=== PATIENT | female | born 1990 | race American Indian/Alaskan Native ===

== ENCOUNTER 2020-04-06 15:35 | Emergency (ER) | payer OTHER ==
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
[2020-04-06 17:32] VITALS: BP 121/80
--- NOTE | 2020-04-06 18:17 | XRay Report ---
Left hand 3 views INDICATION: Left hand pain. IMPRESSION: No fracture or subluxation of the left hand is identified. Moderate swelling overlying th e MCPs dorsally. Signer Name: Al Livingston MD Signed: 04/06/2020 6:12 PM Workstation Name: [id number]
--- NOTE | 2020-04-12 16:01 | XRay Report ---
LEFT SHOULDER 3 VIEW(S) INDICATION / CLINICAL INFORMATION: SHOULDER PAIN COMPARISON: None available. FINDINGS: BONES / JOINT(S): No acute fracture or subluxation. No significant arthritis. SOFT TISSUES: No significant abnormality. ADDITIONAL FINDINGS: None. IMPRESSION: 1. No acute osseous findings of the left shoulder. Signer Name: Jayce Gleason MD Signed: 04/06/2020 6:21 PM Workstation Name: [id number]
== END 2020-04-06 20:30 | disposition home or self-care (01) ==
LOC: ED 15:35
DX: M25.512 Pain in left shoulder (principal); Z79.899 Other long term (current) drug therapy; V47.5XXA Car driver injured in collision with fixed or stationary object in traffic accident, initial encounter; Y93.89 Activity, other specified; Y92.410 Unspecified street and highway as the place of occurrence of the external cause; Y99.8 Other external cause status